=== PATIENT | female | born 1940 | race Caucasian/White ===

== ENCOUNTER 2017-05-09 12:28 | Outpatient (CLI) | payer MEDICARE, OTHER ==
--- NOTE | 2017-05-09 13:11 | RAD ---
CHEST TWO VIEWS: History: Dyspnea. Comparison: 12-01-11 FINDINGS: Heart size is within normal limits. There are arthrosclerotic changes of the aorta. Lungs are clear o f any infiltrative process. Bones appear somewhat demineralized. IMPRESSION: No active intrathoracic disease. Stable chest. POS: C
== END 2017-05-09 12:29 | disposition home or self-care (01) ==
LOC: RAD 12:28
PROVIDERS: ATTEND Internal Medicine Critical Care Medicine
DX: R06.00 Dyspnea, unspecified (principal)
CPT/HCPCS: 71046